=== PATIENT | female | born 2005 | race African-American/Black ===

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

== ENCOUNTER 2024-03-21 14:48 | Emergency (ER) | payer OTHER, SELFPAY ==
[2024-03-21 15:22] VITALS: BP 109/80; PULSE 72; RESP 18; TEMP 36.3; O2SAT 98; BMI 36.1
--- NOTE | 2024-03-21 16:18 | CRLHL7_ITS ---
For Patients: As a result of the Century Cures Act, medical imaging exams and procedure reports are released immediately into your electronic medical record. You may view this report before your referring provider. If you have questions, please contact your health care provider. INDICATION: Right upper quadrant pain. COMPARISON: None. TECHNIQUE: Real time potter scale imaging and color Doppler analysis was performed of the right upper quadrant. FINDINGS: Liver: The liver measures 13.2 cm in length. Normal echogenicity. No focal liver lesions identified. Gallbladder: No stones or sludge. No wall thickening or pericholecystic fluid. Negative sonographic Catherine sign. Bile ducts: The common bile duct measures 2 mm in diameter. Pancreas: Normal where seen. Right kidney: The right kidney measures 10.5 cm in length. No hydronephrosis. Vascular: Normal caliber proximal abdominal aorta. IMPRESSION: Unremarkable exam. Dictated by Haylee Newman MD @ 03/21/2024 7:35:03 PM (Electronically Signed)
--- NOTE | 2024-03-21 16:35 | ED.GENADULT ---
HPI - General Adult General Chief complaint: Abdominal Pain Stated complaint: Pain in RT side Time Seen by Provider: 03/21/24 15:44 Source: patient Mode of arrival: ambulatory Limitations: no limitations History of Present Illness HPI narrative: 89-year-old female presents the emergency department with 24 hours of right upper quadrant abdominal pain, waxing and waning in nature. Necessarily associated with food. No nausea vomiting. No diarrhea, no bloody stools. A similar episode about a year ago in [facility]. She was taking a weight loss medication at the time and had an elevation of liver enzyme. She is told to stop the weight loss medication but is uncertain if there was gallstones or other pathology at the time. She is not using any weight loss medication currently. Her menses are irregular but she denies any romantic relationships are potential for . She is not using any type of control pills. No fever. No trauma or injury. Pain is located underneath the right rib margin it radiates to the right lower pelvis area. She is status post appendectomy in , uncomplicated. No prescription medications, no allergies, no prior pregnancies. Has not tried any medications to help with her symptoms. Last bowel movement was yesterday, uncomplicated. No gynecological changes or dysuria. ROS is notable for the abdominal symptoms only, otherwise denies times 12 systems. Related Data Previous Rx's ?Medication ?Instructions ?Recorded ciprofloxacin HCl 250 mg tablet 250 mg PO Q12H #10 tabs 03/21/24 Allergies Allergy/AdvReac Type Severity Reaction Status Date / Time No Known Drug Allergies Allergy Verified 03/21/24 15:28 [facility] Social History Smoking Status: Never smoker Do you use any of these nicotine containing products: None Second hand tobacco smoke exposure: No How often do you have a drink containing alcohol: never AUDIT-C Alcohol total score: 0 Non-prescribed substance use: denies use service: No Exam Const: Vital Signs, click to edit/add: Vital Signs - 24 hr 03/21/24 15:22 03/21/24 18:32 Temperature 97.3 F L 97.6 F Pulse Rate [Right Pulse Oximeter] 72 65 Respiratory Rate 18 18 Blood Pressure [Ri ght Upper Arm] 109/80 115/68 Pulse Oximetry 98 98 Oxygen Delivery Me thod Room Air Room Air Documenting provider has reviewed patient's vital signs: yes Common normals: no apparent distress General appearance: cooperative, comfortable and well kempt HENMT: Common normals: normocephalic, moist oral mucous membranes and oropharynx normal Head and scalp: normocephalic Eye: Common normals: conjunctivae normal General eye: normal appearance of both eyes Conjunctiva: conjunctiva(e) normal Neck & C-Spine: Common normals: full ROM and no lymphadenopathy Resp: Common normals: normal respiratory effort, no use of accessory muscles and clear to auscultation bilaterally Effort & inspection: able to speak in complete sentences Auscultation: clear to auscultation bilaterally Cardio: Common normals: regular rate, regular rhythm, S1 normal heart sound, S2 normal heart sound and no murmurs Rate: regular rate Rhythm: regular rhythm Heart sounds: S1 normal and S2 normal GI: Common normals: Normal to inspection, nondistended, normoactive bowel sounds present, soft to palpation, no hepatosplenomegaly and no masses Palpation: soft and no hepatosplenomegaly Other: Right upper quadrant tenderness, mild guarding. No tenderness to other aspects of the abdomen. Extremity: Common normals: normal to inspection and normal capillary refill Neuro: Common normals: moves all extremities Speech: speech normal Psych: Appearance: well kempt Attitude: engaged Activity/motor behavior: appropriate eye contact Attention/concentration: attention grossly intact Insight: insight good Judgement: judgment good Skin: Common normals: no rashes or lesions noted General skin exam: no rashes or lesions noted Course Course ED Course: Friendly 18-year-old female with right upper quadrant pain suspicious for cholecystitis differential diagnosis also includes colitis, gastritis, gastroenteritis, choledocholithiasis, biliary colic, pancreatitis, amongst others. Will obtain typical intra-abdominal labs, urinalysis, test and right upper quadrant ultrasound. Declines pain medicine for now. Reevaluation(s) Time of Reevaluation #1: 18:43 Reevaluation #1: Counseled patient on findings. Her pain is progressed now more to the suprapubic area. She denies any dysuria but when I asked more specifically about urinary urgency, frequency and hesitancy, she does endorse those things mildly. She has never had a bladder infection before, we reviewed the signs and symptoms. I did discuss with her that the blood in the urine could indicate a kidney stone. She is not having any flank pain. We discussed the risks and benefits of doing a CT scan and the risk of radiation. At this time, she is in agreement to try treating for the bladder infection and seeing how her symptoms evolve. Counseled on use of Tylenol and ibuprofen as needed for discomfort, will start ciprofloxacin 500 mg p.o. x1 here in the ED and then continue 1-50 b.i.d. for the next 5 days. Alarm symptoms reviewed that would warrant ED presentation. Low threshold for CT if she returns to the ED. Vital Signs Vital signs: Initial Vital Signs Temperature 97.3 F L 03/21/24 15:22 Temperature Source Temporal Artery Scan 03/21/24 15:22 Pulse Rate 72 03/21/24 15:22 Respiratory Rate 18 03/21/24 15:22 Blood Pressure 109/80 03/21/24 15:22 Blood Pressure Mean 89 03/21/24 15:22 Blood Pressure Position Sitting 03/21/24 15:22 Pulse Oximetry 98 03/21/24 15:22 Oxygen Delivery Method Room Air 03/21/24 15:22 Vital Signs Temperature 97.3 F L 03/21/24 15:22 Pulse Rate 72 03/21/24 15:22 Respiratory Rate 18 03/21/24 15:22 Blood Pressure 109/80 03/21/24 15:22 Pulse Oximetry 98 03/21/24 15:22 Oxygen Delivery Method Room Air 03/21/24 15:22 Temperature 97.6 F 03/21/24 18:32 Pulse Rate 65 03/21/24 18:32 Respiratory Rate 18 03/21/24 18:32 Blood Pressure 115/68 03/21/24 18:32 Pulse Oximetry 98 03/21/24 18:32 Oxygen Delivery Method Room Air 03/21/24 18:32 Medications Administered Medications: Discontinued Medications Generic Name Dose Route Start Last Admin Trade Name Swapnilq PRN Reason Stop Dose Admin Ciprofloxacin 500 mg 03/21/24 18:40 03/21/24 18:44 Ciprofloxacin 500 Mg Tablet PO 03/21/24 18:41 500 mg ONCE ONE Administration Medical Decision Making Lab Data Lab results reviewed: Yes I reviewed the patient's lab results Lab results narrative: Blood work all reassuring. Urinalysis is suspicious for infection with blood, white cells and leukocyte Estrace. Labs: Lab Results 03/21/24 03/21/24 Range/Units 15:30 16:46 WBC 4.91 (4.50-11.00) K/uL RBC 4.60 (4.00-5.20) m/uL Hgb 13.4 (12.0-16.0) gm/dL Hct 41.9 (33.0-51.0) % MCV 91 (80-100) fL MCH 29 (26-34) pg MCHC 32 (32-36) gm/dL RDW Coeff of Walter 13.9 (11.5-15.5) % Plt Count 232 (140-440) K/uL Neut % (Auto) 39.5 L (42.0-72.0) % Lymph % (Auto) 48.3 H (20-44) % Blount % (Auto) 10.8 (0.0-11.0) % Eos % (Auto) 0.8 (0.0-7.0) % Baso % (Auto) 0.4 (0.0-3.0) % Neut # (Auto) 1.90 (1.7-7.0) K/uL Lymph # (Auto) 2.40 (0.90-2.90) K/uL Blount # (Auto) 0.50 (0.00-0.90) K/UL Eos # (Auto) 0.04 (0.00-0.50) K/uL Baso # (Auto) 0.02 (0.00-0.30) K/uL Abs Immat Gran (auto) 0.01 (0.00-0.30) K/uL Imm/Tot Granulo (auto) 0.2 % Sodium 141 (135-149) mmol/L Potassium 3.8 (3.6-5.1) mmol/L Chloride 106 (96-114) mmol/L Carbon Dioxide 26 (20-32) mmol/L Anion Gap 9 (7-15) mEq/L BUN 13 (5-24) mg/dL Creatinine 0.6 (0.6-1.2) mg/dL Estimated Creat Clear 119.28 Estimated GFR 133 ml/min Glucose 77 (60-115) mg/dL Calcium 9.2 (8.7-10.8) mg/dL Total Bilirubin 0.2 (0.1-1.5) mg/dL AST 45 H (12-35) U/L ALT 35 (4-35) U/L Alkaline Phosphatase 57 (40-150) U/L C-Reactive Protein 0.6 (0.5-1.0) mg/dL Total Protein 7.8 (6.0-8.3) g/dL Albumin 4.7 (3.3-5.0) g/dL Lipase 97 (23-300) U/L Urine Color Yellow (Yellow) Urine Appearance Clear (Clear) Urine pH 6.0 (5.0-8.5) Ur Specific [place] >= 1.030 (1.000-1.030) Urine Protein Negative (Negative) Urine Glucose (UA) Negative (Negative) Urine Ketones Negative (Negative) Urine Blood 2+ A (Negative) Urine Nitrite Negative (Negative) Urine Bilirubin Negative (Negative) Urine Urobilinogen 0.2 (0.2-1.0) Ur Leukocyte Esterase Trace A (Negative) Urine RBC 2-5 A (0-2) Urine WBC 5-10 A (0-5) Ur Squamous Epith Cells Few (None-Few) Urine Bacteria Few A (None) Urine HCG, Qual Negative (Negative) Imaging Data Right upper quadrant ultrasound: Attestation: I have reviewed the pertinent imaging results. My impression: Normal right upper quadrant ultrasound. No significant gallstones, gallbladder wall thickening, fluid or abnormality. Radiologist's impression: FINDINGS: Liver: The liver measures 13.2 cm in length. Normal echogenicity. No focal liver lesions identified. Gallbladder: No stones or sludge. No wall thickening or pericholecystic fluid. Negative sonographic Catherine sign. Bile ducts: The common bile duct measures 2 mm in diameter. Pancreas: Normal where seen. Right kidney: The right kidney measures 10.5 cm in length. No hydronephrosis. Vascular: Normal caliber proximal abdominal aorta. IMPRESSION: Unremarkable exam. Dictated by Haylee Newman MD @ 03/21/2024 7:35:03 PM Discharge Plan Discharge Clinical Impression: Urinary tract infection Patient Disposition: Home w/ Parent or Adult Condition: Stable Instructions: Urinary Tract Infection in Women (DC) Additional Instructions: As we discussed, your ultrasound looks normal. Your liver and gallbladder look great. Your lab results are also reassuring with the exception of some blood and signs of infection in your urine. Blood can be common because be urine infection or it could indicate a kidney stone. Since there markers of infection, I think this is more likely to be caused by a bladder infection. As we discussed, we could do a CT to look for kidney stone but that is a lot of radiation on her organs and can be dangerous. Since you do not have any of the other signs that would be consistent with a kidney stone in your blood work, I recommend that we try treating for the bladder infection and seeing how things go. Most people feel markedly better after 2 days. Your given your 1st dose of antibiotic here in the emergency department tonight. You will need to garbage pick up man the remainder of the antibiotics at the pharmacy. He will continue taking 1 pill 2 times daily for another 5 days. If things are not improving after 3 days on the antibiotics or if you have significant worsening, bloody stools, significant blood in the urine, high fever, persistent vomiting, you should return to the emergency department for CT scan. Activity Level: No Restrictions Discharge Diet: Regular Prescriptions: New ciprofloxacin HCl 250 mg tablet 250 mg PO Q12H Qty: 10 0RF Follow Up/Referrals: Provider,Not a Local [Primary Care Provider] - Stand Alone Forms: [employer] Info Instructions
[2024-03-21 16:47] LABS: Appearance Urine Clear (Clear); Bilirubin Urine Negative (Negative); Blood Urine 2+ (Negative); Color Urine Yellow (Yellow); Glucose Urine Negative (Negative); Ketones Urine Negative (Negative); Leukocyte Esterase Urine Trace (Negative); Nitrite Urine Negative (Negative); Protein Urine Negative (Negative); Specific Gravity Urine >= 1.030 (1.000-1.030); Urobilinogen Urine 0.2 (0.2-1.0)
[2024-03-21 17:07] LABS: Ur HCG Qualitative* Negative (Negative)
[2024-03-21 17:11] LABS: Bacteria Urine Few; Squamous Epithelial Cell Urine Few (None-Few)
[2024-03-21 17:21] LABS: Albumin* 4.7 g/dL (3.3-5.0); Chloride* 106 mmol/L (96-114)
[2024-03-21 17:22] LABS: Potassium* 3.8 mmol/L (3.6-5.1); Sodium* 141 mmol/L (135-149)
[2024-03-21 17:24] LABS: Basophils Absolute Auto 0.02 K/uL (0.00-0.30); Basophils Percent Auto 0.4 % (0.0-3.0); Bilirubin Total* 0.2 mg/dL (0.1-1.5); Creatinine* 0.6 mg/dL (0.6-1.2); Eosinophils Absolute Auto 0.04 K/uL (0.00-0.50); Eosinophils Percent Auto 0.8 % (0.0-7.0); Est. Creatinine Clearance* 119.28; Estimated Glomerular Filt Rate 133 ml/min; Hematocrit 41.9 % (33.0-51.0); Hemoglobin* 13.4 gm/dL (12.0-16.0); Immature Granulocytes Abs Auto 0.01 K/uL (0.00-0.30); Immature Granulocytes Pct Auto 0.2 %; Lymphocytes Percent Auto 48.3 % (20-44); Mean Corpuscular HGB Conc 32 gm/dL (32-36); Mean Corpuscular Hemoglobin 29 pg (26-34); Mean Corpuscular Volume 91 fL (80-100); Monocytes Percent Auto 10.8 % (0.0-11.0); Neutrophils Percent Auto 39.5 % (42.0-72.0); Platelet Count* 232 K/uL (140-440); RDW Coefficient of Variation % 13.9 % (11.5-15.5); White Blood Count* 4.91 K/uL (4.50-11.00)
[2024-03-21 17:25] LABS: Alanine Aminotransferase* 35 U/L (4-35); Alkaline Phosphatase* 57 U/L (40-150); Anion Gap 9 mEq/L (7-15); Aspartate Amino Transferase* 45 U/L (12-35); Blood Urea Nitrogen* 13 mg/dL (5-24); Calcium* 9.2 mg/dL (8.7-10.8); Carbon Dioxide* 26 mmol/L (20-32); Glucose* 77 mg/dL (60-115); Lipase* 97 U/L (23-300); Total Protein* 7.8 g/dL (6.0-8.3)
[2024-03-21 17:26] LABS: Slide Review Reflex No
[2024-03-21 17:27] LABS: C Reactive Protein* 0.6 mg/dL (0.5-1.0)
[2024-03-21 18:32] VITALS: BP 115/68; PULSE 65; RESP 18; TEMP 36.4; O2SAT 98
[2024-03-21] MEDS: CIPROFLOXACIN 500 MG TABLET PO (18:44)
== END 2024-03-21 18:52 | disposition home or self-care (01) ==
PROVIDERS: Emergency Provider Family Medicine
DX: N39.0 Urinary tract infection, site not specified (principal)
CPT/HCPCS: 36415; 76705; 80053; 81001; 81003; 81025; 83690; 85025; 86140; 87086; 99283; 99284; A9270

== ENCOUNTER 2024-05-25 10:49 | Emergency (ER) | payer OTHER, SELFPAY ==
[2024-05-25 10:53] VITALS: BP 109/76; PULSE 83; RESP 16; TEMP 36.6; O2SAT 97
--- NOTE | 2024-05-25 11:05 | ED_ITS ---
HPI - General Adult General Chief complaint: Unspecified Complaint, Adult Stated complaint: Facial swelling Time Seen by Provider: 05/25/24 11:00 Source: patient Mode of arrival: ambulatory Limitations: no limitations History of Present Illness HPI narrative: 19-year-old female presenting today with swelling her right face. She states that 2 days ago she developed a pimple just lateral to the right eye and today she woke up and she complains of facial swelling and tenderness. Denies systemic symptoms. Denies changes in her vision. Denies pain with extraocular movement. Denies swelling of the upper or lower eyelids. Denies pain with opening and closing her mouth. Denies pain in her ear. Denies pain inside her mouth. Related Data Previous Rx's ?Medication ?Instructions ?Recorded cefadroxil 500 mg capsule 500 mg PO BID 7 days #14 caps 05/25/24 Allergies Allergy/AdvReac Type Severity Reaction Status Date / Time No Known Drug Allergies Allergy Verified 03/21/24 15:28 Review of Systems Status of ROS: Reports: 6 or more systems reviewed and unremarkable except as noted in History and below [facility] Social History Smoking Status: Never smoker Do you use any of these nicotine containing products: None Second hand tobacco smoke exposure: No How often do you have a drink containing alcohol: never AUDIT-C Alcohol total score: 0 Non-prescribed substance use: denies use service: No Exam Narrative: Exam Narrative: Well-nourished well-developed patient in no acute distress. Alert and oriented. Answers questions appropriately. Mood and affect are appropriate. Thoughts are goal oriented and rational. No tangential or magical thinking noted. Patient speaks in full sentences without needing to catch her breath. HEENT: Normocephalic atraumatic. Pupils are equally round reactive to light. Extraocular muscles are intact without discomfort. Conjunctivae are moist without any icterus noted. Moist mucous membranes. Posterior pharynx is normal. Neck is soft without any lymphadenopathy or thyromegaly. No masses are appreciated. Patient has mild swelling over the lateral cheek. She has a pimple that is tender and firm over the lateral cheek on the right side. She does have some mild surrounding erythema. Const: Vital Signs, click to edit/add: Vital Signs - 24 hr 05/25/24 10:53 Temperature 98 F Pulse Rate [Pulse Oximeter] 83 Respiratory Rate 16 Blood Pressure [Ri ght Upper Arm] 109/76 Pulse Oximetry 97 Oxygen Delivery Me thod Room Air Course Vital Signs Vital signs: Initial Vital Signs Temperature 98 F 05/25/24 10:53 Temperature Source Temporal Artery Scan 05/25/24 10:53 Pulse Rate 83 05/25/24 10:53 Respiratory Rate 16 05/25/24 10:53 Blood Pressure 109/76 05/25/24 10:53 Blood Pressure Mean 87 05/25/24 10:53 Blood Pressure Position Sitting 05/25/24 10:53 Pulse Oximetry 97 05/25/24 10:53 Oxygen Delivery Method Room Air 05/25/24 10:53 Vital Signs Temperature 98 F 05/25/24 10:53 Pulse Rate 83 05/25/24 10:53 Respiratory Rate 16 05/25/24 10:53 Blood Pressure 109/76 05/25/24 10:53 Pulse Oximetry 97 05/25/24 10:53 Oxygen Delivery Method Room Air 05/25/24 10:53 Temperature 98 F 05/25/24 10:53 Pulse Rate 83 05/25/24 10:53 Respiratory Rate 16 05/25/24 10:53 Blood Pressure 109/76 05/25/24 10:53 Pulse Oximetry 97 05/25/24 10:53 Oxygen Delivery Method Room Air 05/25/24 10:53 Medical Decision Making MDM Narrative Medical decision making narrative: 19-year-old female with a small swollen superficial skin abscess. She does have some surrounding erythema consistent with the beginnings of cellulitis. Because of this we will go ahead and put her on cefadroxil b.i.d. Discharge Plan Discharge Clinical Impression: Cellulitis Patient Disposition: Home, Self-Care Condition: Stable Additional Instructions: Take all antibiotics as prescribed. Follow-up in the clinic on Sunday or of this week. Return to the emergency department if the area is getting worse instead of better after 3 doses of antibiotic treatment. Take 1st dose of antibiotic today. Prescriptions: New cefadroxil 500 mg capsule 500 mg PO BID 7 Days Qty: 14 0RF Follow Up/Referrals: Provider,Not a Local [Primary Care Provider] - Stand Alone Forms: [employer] Info Instructions
== END 2024-05-25 11:31 | disposition home or self-care (01) ==
LOC: ED 11:14
PROVIDERS: Emergency Provider Family Medicine
DX: L03.211 Cellulitis of face (principal)
CPT/HCPCS: 99283

== ENCOUNTER 2024-06-10 13:50 | Outpatient (CLI) | payer OTHER, SELFPAY | END 2024-06-10 13:51 | disposition home or self-care (01) | PROVIDERS: Visit Provider Family Medicine | DX: E28.2 Polycystic ovarian syndrome (principal); N92.6 Irregular menstruation, unspecified; R53.83 Other fatigue; Z13.6 Encounter for screening for cardiovascular disorders; Z13.21 Encounter for screening for nutritional disorder | CPT/HCPCS: 80053; 80061; 82607; 82728; 84443 ==

== ENCOUNTER 2025-01-27 15:24 | Outpatient (CLI) | payer OTHER, SELFPAY | END 2025-01-27 15:25 | disposition home or self-care (01) | LOC: NFLDREF 15:25 | PROVIDERS: PCP Family Medicine; Visit Provider Family Medicine | DX: R30.0 Dysuria (principal) | CPT/HCPCS: 87086 ==